=== PATIENT | male | born 2000 | race Caucasian/White ===

== ENCOUNTER 2023-04-23 06:26 | Emergency (ER) | payer BC, SELFPAY ==
[2023-04-23 06:29] VITALS: BP 138/85; PULSE 110; RESP 16; TEMP 36.8; O2SAT 99; BMI 32.5
--- NOTE | 2023-04-23 06:34 | PC.NURSE ---
Pt reports waking up with worsening rash that started at midnight last night. Pt had similar rash a few years ago with strep infection. Pt denies sore throat, upon assessmnt pt has redness and small white patches noted to back of throat. Airway intact. 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
--- NOTE | 2023-04-23 06:44 | ED_ITS ---
HPI - Skin/Abscess/Foreign Bdy General Chief complaint: Skin/Abscess/Foreign Body Stated complaint: RASH Time Seen by Provider: 04/23/23 06:33 Source: patient Mode of arrival: walk-in Limitations: no limitations History of Present Illness HPI narrative: This 23-year-old male presents for evaluation of a nonpainful, nonpruritic rash that started last night around midnight. He states he noticed the rash on his arms and face and overnight it became more confluent. He denies any fevers or chills. He denies that he has been ill for the past several days. He states he did have a rash in the past when he had strep throat. He denies any sore throat at this time. He has no headache, blurred vision, neck pain or stiffness. He has no nausea or vomiting. He states that he is not having any pain whatsoever but does have some discomfort in his anterior wrist areas where the rash seemed to have started. He denies any sick contacts. The rash at this time is on his face, neck, chest upper extremities back, abdomen and appears to be starting to develop on his lower extremities. There is no painful nodules on his lower extremities. He is not having any urinary symptoms or flank pain. No medications were taken prior to arrival. Denies any change in his diet or health care routine. Not typically take any medications. He denies any changes in his detergents or soaps or other body products. Related Data Home Medications Medication Instructions Recorded Confirmed No Known Home Medications 04/23/23 04/23/23 Allergies Allergy/AdvReac Type Severity Reaction Status Date / Time No Known Drug Allergies Allergy Verified 04/23/23 06:33 Review of Systems ROS Status of ROS 10 or more systems reviewed and unremark able except as noted in history and below Exam Narrative Exam Narrative: Nurses note and vital signs reviewed and patient is not hypoxic. Noted to be mildly tachycardic with a pulse of 110 at triage General: The patient appears well and in no apparent distress. Patient is resting comfortably on cart. Skin: Diffuse macular pink rash on the patient's face, scalp, neck, back, abdomen and upper extremities. A few macules are also present on the lower extremities but this is not diffuse. There is no petechiae or purpura noted. There do appear to be several nonindurated and nontender macules on the pat ient's palms and questionable on the patient's feet. No sign of local cellulitis. No excoriated areas. Head: Normocephalic, atraumatic Eye: Normal conjunctiva, no drainage, EOMI. PERRL Ears, Nose, Mouth, and Throat: oral mucosa is moist. There are 2 macules on the tonsillar pillars on the right. There is no swelling of the tongue, uvula or pharyngeal soft tissues Neck: Supple, no appreciable anterior posterior cervical lymphadenopathy, no meningeal signs Cardiovascular: Regular Rate and Rhythm S1S2, no murmurs, rubs or gallops Respiratory: Patient is in no distress, no accessory muscle use, lungs are clear to auscultation, no wheezing, rales or rhonchi Back: non-tender, no CVA tenderness bilaterally to percussion. GI: Normal bowel sounds, no tenderness to palpation, no masses appreciated. No rebound, guarding, or rigidity noted. Musculoskeletal: The patient has no evidence of calf tenderness, no pitting edema, symmetrical pulses noted bilaterally- rash as noted above on hands, face, neck, chest, posterior thorax and abdomen, less severe on upper legs and questionable rash on feet Neurological: A&O x4, normal speech Psychiatric: Cooperative Constitutional Vital Signs, click to edit/add: Last Vital Signs Temp 98.3 F 04/23/23 06:29 Pulse 110 H 04/23/23 06:29 Resp 16 04/23/23 06:29 BP 138/85 04/23/23 06:29 Pulse Ox 99 04/23/23 06:29 O2 Del Method Room Air 04/23/23 06:29 Course Vital Signs Vital signs: Vital Signs Temperature 98.3 F 04/23/23 06:29 Pulse Rate 110 H 04/23/23 06:29 Respiratory Rate 16 04/23/23 06:29 Blood Pressure 138/85 04/23/23 06:29 Pulse Oximetry 99 04/23/23 06:29 Oxygen Delivery Method Room Air 04/23/23 06:29 Temperature 98.3 F 04/23/23 06:29 Pulse Rate 110 H 04/23/23 06:29 Respiratory Rate 16 04/23/23 06:29 Blood Pressure 138/85 04/23/23 06:29 Pulse Oximetry 99 04/23/23 06:29 Oxygen Delivery Method Room Air 04/23/23 06:29 MDM - Skin/Abscess/Foreign Bdy MDM Narrative Medical decision making narrative: This otherwise healthy 23-year-old male presents for evaluation of a diffuse rash that started last night and became progressively worse overnight. It is not tender or pruritic. He has had a rash in the past when he has strep throat. He denies any recent illness or fever. He denies any sick contacts. He does have a diffuse, flat pink rash on his face, neck, back, scalp, upper extremities and questionable macules on the palms of his hands. His lower extremities are less involved at this time however the rash has been spreading since it started. It is questionable whether he has any macules on his feet. Emergency department with Benadryl and 40 mg of Kenalog. Strep testing and monitoring testing are pending. He will be signed out at shift change. Discharge Plan Discharge Chief Complaint: Skin/Abscess/Foreign Body Clinical Impression: Rash Patient Disposition: Still a Patient Prescriptions / Home Meds: No Action No Known Home Medications Referrals: Physician,Non-Staff, MD [Primary Care Provider] - 1 week
[2023-04-23] MEDS: TRIAMCINOLONE ACETONIDE 40 MG/ML VIAL IM (06:51)
[2023-04-23] MEDS: DIPHENHYDRAMINE HCL 25 MG CAPSULE PO (06:51)
[2023-04-23 07:04] LABS: Internal Control Within Normal Limits; Strep A Antigen Screen Negative
[2023-04-23 07:20] LABS: Mono Screen NEGATIVE (NEGATIVE)
== END 2023-04-23 07:39 | disposition home or self-care (01) ==
PROVIDERS: Emergency Medicine; Emergency Provider Emergency Medicine Emergency Medical Services
DX: L23.9 Allergic contact dermatitis, unspecified cause (principal)
CPT/HCPCS: 86308; 87070; 87880; 96372; 99284

== ENCOUNTER 2023-05-04 12:04 | Outpatient (OUT) | payer BC, SELFPAY ==
--- OUTSIDE RECORDS SUMMARY | 2023-05-04 12:14 | XMS_ITS | CCD ---
Author Name Unknown Address [address] [place] [address] Organization [facility] Care Team Providers Care [employer] Name Role Phone YennySuki ponceela Unavailable Medications Current Medications Medication Drug Class(es) Dates Sig (Normalized) Sig (Original) predniSONE 20 mg oral tablet (1 source) Start: 02-28-2023 take 1 tablet by mouth every twelve hours predniSONE 20 MG 1 tablet Orally bid for 5 day(s) Feb, Active Completed/Discontinued Medications Medication Drug Class(es) Dates Sig (Normalized) Sig (Original) albuterol 0.83 mg/ml inhalation solution (1 source) beta2-Adrenergic Agonist Start: 8 Albuterol Sulfate (2.5 MG/3ML) 0.083% 3 ml as needed Inhalation every 6 hrs as needed for chest tightness or shortness of breath for 7 days September, Not-Taking azithromycin 250 mg oral tablet (1 source) Macrolide Antimicrobial Start: 8 Zithromax Z-Dudley 250 MG 2 tablets on the first day, then 1 tablet daily for 4 days Orally Once a day for 5 day(s) September, Not-Taking benzonatate 100 mg oral capsule (1 source) Non-narcotic Antitussive take 1 capsule by mouth three times daily as needed Tessalon Perles 100 MG 1 capsule as needed Orally Three times a day for 7 days Not-Taking methylPREDNISolone 4 mg oral tablet (1 source) Corticosteroid methylPREDNISolo ne 4 MG as directed Orally take as directed for 6 days Not-Taking Problems Problem Classification Problem Date Documented Da te Episodic/Chronic Allergic reactions (1 source) Unspecified contact dermatitis, unspecified cause Episodic Vital Signs Date Time Vital Sign Value Performing Clinician Facility 02-28-2023 17:20-0400 Body height 181.61 cm Olga Ramon Other [facility] Other 02-28-2023 17:20-0400 Body mass index (BMI) [Ratio] 38.23 kg/m2 Olga Ramon Other [facility] Other 02-28-2023 17:20-0400 Body temperature 97.8 [degF] Olga Yenny Other [facility] Other 02-28-2023 17:20-0400 Body weight 126.1 kg Olga Gutierrezmond Other [facility] Other 02-28-2023 17:20-0400 Diastolic blood pressure 76 mm[Hg] Olga Gutierrezmond Other [facility] Other 02-28-2023 17:20-0400 Respiratory rate 18 /min Olga Gutierrezmond Other [facility] Other 02-28-2023 17:20-0400 SaO2% (BldA) [Mass fraction] 98 % Olga Gutierrezmond Other [facility] Other 02-28-2023 17:20-0400 Systolic blood pressure 150 mm[Hg] Olga Yenny Other [facility] Other Encounters Encounter Date Encounter Type Care Provider Facility Start: 02-28-2023 End: 02-28-2023 ambulatory Olga Yenny Other [facility] Other Start: 02-28-2023 Office outpatient ne w 20 minutes Olga Ramon [facility] Start: 09-09-2022 ambulatory Facility:[facility] 1 Payers Date Payer Category P[id number] Social History Date Type Detail Facility Unknown if ever smoked [facility] Other Sex Assigned At Sex Assigned At Bir th [facility] Other Evaluation note 02-28-2023 Note Date & Type Note Facility 02-28-2023 Evaluation note Encounter Date Diagnosis Assessment Notes Feb, Contact dermatitis, unspecified contact dermatitis type, unspecified trigger (ICD-10 - L25.9) Drink plenty of fluids, get plenty of rest. Take the prednisone as prescribed until gone. Take Benadryl as needed for itching. Follow-up with your family physician if no improvement in 2 to 3 days [facility] Other Summary Purpose Family History No Family History Records Found Advance Directives No Advanced Directives Records Found Additional Source Comments (unrecognized sect ion and content) No Status Records Found INFORMATION SOURCE (unrecogn ized section and content) DATE CREATED AUTHOR 09/13/2022 [facility] REASON FOR VISIT (unrecogniz ed section and content) rash appearing stomach, arms , thighs FOR RECORDS PERTAINING TO PATIENTS WHO ARE OR HAVE BEEN ENROLLED IN A CHEMICAL DEPENDENCY/SUBSTANCEABUSE PROGRAM, SOME INFORMATION MAY BE OMITTED. This clinical summary was aggregated from multiple sources. Caution should be exercised in using it in the provision of clinical care. This summary normalizes information from multiple sources, and as a consequence, information in this document may materially change the coding, format and clinical context of patient data. In addition, data may be omitted in some cases. CLINICAL DECISIONS SHOULD BE BASED ON THE PRIMARY CLINICAL RECORDS. [employer] provides no warranty or guarantee of the accuracy or completeness of information in this document.
[2023-05-04 12:50] LABS: Basophils Absolute Auto 0.1 10^3/uL (0.0-0.1); Basophils Percent Auto 0.6 % (0.2-2.0); Eosinophils Absolute Auto 0.2 10^3/uL (0.0-0.7); Hematocrit 47.4 % (42.0-54.0); Hemoglobin 15.8 g/dL (14.0-18.0); Immature Granulocytes Abs Auto 0.03 10^3/uL (0.00-0.03); Immature Granulocytes Pct Auto 0.3 % (0.0-0.5); Lymphocytes Absolute Auto 3.5 10^3/uL (1.2-3.8); Mean Corpuscular HGB Conc 33.3 g/dL (29.9-35.2); Mean Corpuscular Hemoglobin 29.6 pg (25.9-34.0); Mean Corpuscular Volume 88.9 fL (80.0-94.0); Mean Platelet Volume 9.8 fL (9.5-13.5); Monocytes Absolute Auto 0.9 10^3/uL (0.3-0.8); Monocytes Percent Auto 8.5 % (1.7-12.0); Neutrophils Absolute Auto 5.9 10^3/uL (1.4-6.5); Neutrophils Percent Auto 55.6 % (43.0-75.0); Platelet Count 266 10^3/uL (150-450); Red Blood Count 5.33 10^6/uL (4.70-6.10); Red Cell Distribution Width 12.1 % (11.0-15.0); White Blood Count 10.6 10^3/uL (4.0-11.0)
[2023-05-04 13:06] LABS: Alanine Aminotransferase 33 U/L (16-63); Alkaline Phosphatase 91 U/L (46-116); Anion Gap 11.3; Aspartate Amino Transferase 18 U/L (15-37); BUN Creatinine Ratio 14.9; Bilirubin Total 0.5 mg/dL (0.2-1.0); Calcium 9.5 mg/dL (8.5-10.1); Carbon Dioxide 30.5 mmol/L (21.0-32.0); Chloride 103 mmol/L (98-107); Estimated GFR (African America >60 (>=60); Estimated GFR (Non-African Ame >60 (>=60); Globulin 3.9 g/dL; Glucose 86 mg/dL (74-106); Potassium 3.8 mmol/L (3.5-5.1); Sodium 141 mmol/L (136-145); Total Protein 7.9 g/dL (6.4-8.2)
[2023-05-04 13:08] LABS: Estimated Average Glucose 103 mg/dL; Glycohemoglobin A1C 5.2 % (4.5-6.2)
[2023-05-05 07:10] LABS: HCV Ab Non Reactive (Non Reactive)
[2023-05-05 08:10] LABS: HIV Ab/p24 Ag Screen Non Reactive (Non Reactive)
[2023-05-08 00:09] LABS: QuantiFERON-TB Gold Plus Negative (Negative)
[2023-05-10 04:07] LABS: D001-IgE D pteronyssinus <0.10 kU/L (Class 0); D002-IgE D farinae <0.10 kU/L (Class 0); E001-IgE Cat Dander <0.10 kU/L (Class 0); E005-IgE Dog Dander <0.10 kU/L (Class 0); E072-IgE Mouse Urine <0.10 kU/L (Class 0); G002-IgE Bermuda Grass <0.10 kU/L (Class 0); G006-IgE Timothy Grass <0.10 kU/L (Class 0); I006-IgE Cockroach, German <0.10 kU/L (Class 0); Immunoglobulin E, Total 50 IU/mL (6-495); M001-IgE Penicillium chrysogen <0.10 kU/L (Class 0); M002-IgE Cladosporium herbarum <0.10 kU/L (Class 0); M003-IgE Aspergillus fumigatus <0.10 kU/L (Class 0); M006-IgE Alternaria alternata <0.10 kU/L (Class 0); T001-IgE Maple/Box Elder <0.10 kU/L (Class 0); T003-IgE Common Silver Birch <0.10 kU/L (Class 0); T006-IgE Cedar, Mountain <0.10 kU/L (Class 0); T007-IgE Oak, White <0.10 kU/L (Class 0); T008-IgE Elm, American <0.10 kU/L (Class 0); T010-IgE Walnut <0.10 kU/L (Class 0); T011-IgE Maple Leaf Sycamore <0.10 kU/L (Class 0); T014-IgE Cottonwood <0.10 kU/L (Class 0); T015-IgE Ash, White <0.10 kU/L (Class 0); T022-IgE Pecan, Hickory <0.10 kU/L (Class 0); T070-IgE White Mulberry <0.10 kU/L (Class 0); W001-IgE Ragweed, Short <0.10 kU/L (Class 0); W011-IgE Thistle, Russian <0.10 kU/L (Class 0); W014-IgE Pigweed, Common <0.10 kU/L (Class 0); W018-IgE Sheep Sorrel <0.10 kU/L (Class 0)
== END 2023-05-04 12:05 | disposition home or self-care (01) ==
LOC: LAB 12:07
PROVIDERS: PCP Nurse Practitioner Primary Care; Visit Provider Nurse Practitioner Primary Care
DX: Z00.00 Encounter for general adult medical examination without abnormal findings (principal); Z11.59 Encounter for screening for other viral diseases; Z11.4 Encounter for screening for human immunodeficiency virus [HIV]; Z13.6 Encounter for screening for cardiovascular disorders; Z11.1 Encounter for screening for respiratory tuberculosis
CPT/HCPCS: 36415; 80053; 82785; 83036; 85025; 86003; 86480; 86803; 87389

== ENCOUNTER 2023-05-11 15:22 | Outpatient (OUT) | payer BC, SELFPAY ==
[2023-05-11 16:05] LABS: Chol HDL Ratio 3.4; Cholesterol 159 mg/dL (<=200); HDL Cholesterol 47 mg/dL (40-60); Triglycerides 170 mg/dL (<=150)
== END 2023-05-11 15:23 | disposition home or self-care (01) ==
LOC: LAB 15:22
PROVIDERS: PCP Nurse Practitioner Primary Care; Visit Provider Nurse Practitioner Primary Care
DX: Z00.00 Encounter for general adult medical examination without abnormal findings (principal); Z11.59 Encounter for screening for other viral diseases; Z11.4 Encounter for screening for human immunodeficiency virus [HIV]; Z13.6 Encounter for screening for cardiovascular disorders; Z11.1 Encounter for screening for respiratory tuberculosis
CPT/HCPCS: 36415; 80061